=== PATIENT | female | born 1955 | race Caucasian/White ===

== ENCOUNTER 2017-01-07 01:27 | Emergency (ER) | payer MEDICARE ==
[~2017-01-07] VITALS: Ht 165.1 cm; Wt 85.0 kg
[~2017-01-07 01:27] MED LIST: AMLODIPINE10 MG PO; CYCLOBENZAPRINE10 MG PO; FENTANYL50 MCG/HR TD; GABAPENTIN600 MG PO; LEVOTHYROXINE150 MCG PO; LOSARTAN/HCT1 TA1; LOSARTAN/HCT1 TA1 PO; OXYCODONE10 M1 PO; PAROXETINE40 MG PO; SIMVASTATIN20 MG PO; TRAZODONE50 MG PO
[2017-01-07] MEDS ORDERED: CENTRUM PO (03:00)
[2017-01-07] MEDS ORDERED: OMEGA 31000 MG PO (03:01)
[2017-01-07] MEDS ORDERED: CO ENZYME Q PO (03:01)
[2017-01-07] MEDS ORDERED: LORAZEPAM0.5 MG PO (03:03)
[2017-01-07 05:37] LABS: HEMATOCRIT 44.7 % (37.0-47.0); HEMOGLOBIN 14.9 g/dl (12.0-16.0); IMMATURE GRANULOCYTES 0.3 % (0.0-1.0); MEAN CELL VOLUME 95.5 fL CALC (80.0-100.0); MEAN CORPUSCULAR HGB 31.8 pG CALC (26.0-32.0); MEAN CORPUSCULAR HGB CONC 33.3 g/L CALC (32.0-36.0); NEUT# 6.17 thou/uL (2.00-7.15); RED BLOOD COUNT 4.68 mill/uL (4.20-5.60)
[2017-01-07 06:45] VITALS: BP 148/84
== END 2017-01-07 06:45 | disposition home or self-care (01) ==
LOC: ED 01:27
PROVIDERS: Emergency Medicine
DX: R10.31 Right lower quadrant pain (principal); I10 Essential (primary) hypertension; B19.20 Unspecified viral hepatitis C without hepatic coma; E05.00 Thyrotoxicosis with diffuse goiter without thyrotoxic crisis or storm; M19.90 Unspecified osteoarthritis, unspecified site; F17.210 Nicotine dependence, cigarettes, uncomplicated

== ENCOUNTER 2018-04-17 17:40 | Emergency (ER) | payer MEDICARE, MEDICAID ==
[~2018-04-17] VITALS: Ht 165.1 cm; Wt 90.0 kg
[~2018-04-17 17:40] MED LIST changes: +CENTRUM PO; +CO ENZYME Q PO; +LORAZEPAM0.5 MG PO; +OMEGA 31000 MG PO
[2018-04-17 18:28] LABS: HEMATOCRIT 40.5 % (37.0-47.0); HEMOGLOBIN 13.6 g/dl (12.0-16.0); IMMATURE GRANULOCYTES 0.6 % (0.0-5.0); MEAN CELL VOLUME 95.1 fL CALC (80.0-100.0); MEAN CORPUSCULAR HGB 31.9 pG CALC (26.0-32.0); MEAN CORPUSCULAR HGB CONC 33.6 g/L CALC (32.0-36.0); NEUT# 8.48 thou/uL (2.00-7.15); RED BLOOD COUNT 4.26 mill/uL (4.20-5.60); RED CELL DISTRI WIDTH 13.5 % (11.5-15.5)
[2018-04-17 18:28] LABS: URINE BILIRUBIN - DIPSTICK NEGATIVE (NEGATIVE); URINE BLOOD DIPSTICK TRACE-INTACT (NEGATIVE); URINE COLOR YELLOW; URINE GLUCOSE - DIPSTICK NEGATIVE (NEGATIVE); URINE KETONE NEGATIVE (NEGATIVE); URINE LEUK ESTERASE TRACE (NEGATIVE); URINE NITRITE - DIPSTICK NEGATIVE (Negative); URINE PROTEIN - DIPSTICK NEGATIVE (NEG-TRACE); URINE SPECIFIC GRAVITY >=1.030; URINE UROBILINOGEN - DIPSTICK 0.2 E.U./dL (0.2)
[2018-04-17 18:29] LABS: URINE CLARITY CLEAR
[2018-04-17 18:43] LABS: ALBUMIN 3.8 g/dL (3.2-5.0); ALKALINE PHOSPHATASE 84 u/l (38-126); ANION GAP 14 (6-22 (CALC)); BILIRUBIN, TOTAL 0.7 mg/dL (0.0-1.4); BUN 6 mg/dL (7-17); BUN/CREATININE RATIO 9 (12-20 (CALC)); CARBON DIOXIDE 26 mmol/l (22-30); CHLORIDE 103 mmol/l (95-108); CREATININE 0.7 mg/dL (0.5-1.0); GFR > 60 ML/MIN (>=60 (CALC)); GFR FOR AFR.AMER. > 60 ML/MIN (>=60 (CALC)); POTASSIUM 3.9 mmol/l (3.5-5.1); SGOT/AST 33 u/l (14-36); SGPT/ALT 37 u/l (9-52); SODIUM 138 mmol/l (137-146); TOTAL PROTEIN 7.2 g/dL (6.3-8.2)
[2018-04-17] MEDS ORDERED: EFFEXOR37.5 MG PO (19:07)
[2018-04-17 20:25] VITALS: BP 137/65
== END 2018-04-17 20:28 | disposition home or self-care (01) ==
LOC: ED 17:40
DX: R10.31 Right lower quadrant pain (principal); R50.9 Fever, unspecified; R35.0 Frequency of micturition; F17.200 Nicotine dependence, unspecified, uncomplicated; M54.5 Low back pain

== ENCOUNTER 2019-06-15 14:21 | Inpatient (IN) | payer MEDICARE, MEDICAID ==
[~2019-06-15] VITALS: Ht 167.6 cm; Wt 78.9 kg
[~2019-06-15 14:21] MED LIST changes: +ATIVAN1 M1 PO; +EFFEXOR37.5 MG PO; -LORAZEPAM0.5 MG PO
[2019-06-15 15:15] LABS: HEMOGLOBIN 16.8 g/dl (12.0-16.0); IMMATURE GRANULOCYTES 0.4 % (0.0-5.0); MEAN CELL VOLUME 95.3 fL CALC (80.0-100.0); MEAN CORPUSCULAR HGB 31.4 pG CALC (26.0-32.0); MEAN CORPUSCULAR HGB CONC 32.9 g/L CALC (32.0-36.0); NEUT# 8.73 thou/uL (2.00-7.15); RED BLOOD COUNT 5.35 mill/uL (4.20-5.60); RED CELL DISTRI WIDTH 13.9 % (11.5-15.5)
[2019-06-15 15:28] LABS: ALBUMIN 4.7 g/dL (3.2-5.0); ALKALINE PHOSPHATASE 98 u/l (38-126); AMYLASE 45 u/l (30-110); ANION GAP 18 (6-22 (CALC)); BILIRUBIN, TOTAL 1.1 mg/dL (0.0-1.4); BUN 10 mg/dL (8-23); BUN/CREATININE RATIO 9 (12-20 (CALC)); CARBON DIOXIDE 28 mmol/l (22-30); CHLORIDE 101 mmol/l (95-108); CREATININE 1.1 mg/dL (0.5-1.0); GFR 50 ML/MIN (>=60 (CALC)); GFR FOR AFR.AMER. > 60 ML/MIN (>=60 (CALC)); LIPASE 21 u/l (23-300); POTASSIUM 4.2 mmol/l (3.5-5.1); SGOT/AST 21 u/l (9-36); SODIUM 143 mmol/l (137-146); TOTAL PROTEIN 8.4 g/dL (6.3-8.2)
[2019-06-15 17:35] VITALS: BP 156/92
[2019-06-15 19:23] VITALS: BP 168/86
[2019-06-15 21:30] VITALS: BP 141/77
[2019-06-15 23:23] LABS: URINE BILIRUBIN - DIPSTICK SMALL (NEGATIVE); URINE BLOOD DIPSTICK NEGATIVE (NEGATIVE); URINE COLOR YELLOW; URINE GLUCOSE - DIPSTICK NEGATIVE (NEGATIVE); URINE KETONE TRACE mg/dL (NEGATIVE); URINE LEUK ESTERASE TRACE (NEGATIVE); URINE NITRITE - DIPSTICK NEGATIVE (Negative); URINE PROTEIN - DIPSTICK NEGATIVE (NEG-TRACE); URINE SPECIFIC GRAVITY 1.025
[2019-06-16 00:01] VITALS: BP 117/77
[2019-06-16 03:42] VITALS: BP 114/56
[2019-06-16 07:50] VITALS: BP 126/77
[2019-06-16 13:37] VITALS: BP 133/80
[2019-06-16 16:31] VITALS: BP 130/72
[2019-06-16 20:01] VITALS: BP 149/74
[2019-06-17 04:28] VITALS: BP 144/77
[2019-06-17 05:07] LABS: IMMATURE GRANULOCYTES 0.5 % (0.0-5.0); MEAN CELL VOLUME 97.7 fL CALC (80.0-100.0); MEAN CORPUSCULAR HGB 31.7 pG CALC (26.0-32.0); MEAN CORPUSCULAR HGB CONC 32.4 g/L CALC (32.0-36.0); NEUT# 6.91 thou/uL (2.00-7.15); RED BLOOD COUNT 3.98 mill/uL (4.20-5.60); RED CELL DISTRI WIDTH 13.6 % (11.5-15.5)
[2019-06-17 05:54] LABS: HEMATOCRIT 38.9 % (37.0-47.0); HEMOGLOBIN 12.6 g/dl (12.0-16.0)
[2019-06-17 06:10] LABS: ALKALINE PHOSPHATASE 71 u/l (38-126); ANION GAP 14 (6-22 (CALC)); BILIRUBIN, TOTAL 1.1 mg/dL (0.0-1.4); BUN 13 mg/dL (8-23); BUN/CREATININE RATIO 16 (12-20 (CALC)); CARBON DIOXIDE 26 mmol/l (22-30); CHLORIDE 108 mmol/l (95-108); CREATININE 0.8 mg/dL (0.5-1.0); GFR > 60 ML/MIN (>=60 (CALC)); GFR FOR AFR.AMER. > 60 ML/MIN (>=60 (CALC)); POTASSIUM 3.8 mmol/l (3.5-5.1); SGOT/AST 21 u/l (9-36); SODIUM 143 mmol/l (137-146)
[2019-06-17 06:11] LABS: ALBUMIN 3.5 g/dL (3.2-5.0); TOTAL PROTEIN 6.4 g/dL (6.3-8.2)
[2019-06-17 07:36] VITALS: BP 142/72
[2019-06-17 15:27] VITALS: BP 142/83
[2019-06-17 19:30] VITALS: BP 148/83
[2019-06-18 04:00] VITALS: BP 138/71
[2019-06-18 05:16] LABS: HEMATOCRIT 36.9 % (37.0-47.0); HEMOGLOBIN 12.3 g/dl (12.0-16.0); MEAN CELL VOLUME 97.6 fL CALC (80.0-100.0); MEAN CORPUSCULAR HGB 32.5 pG CALC (26.0-32.0); MEAN CORPUSCULAR HGB CONC 33.3 g/L CALC (32.0-36.0); RED BLOOD COUNT 3.78 mill/uL (4.20-5.60); RED CELL DISTRI WIDTH 13.8 % (11.5-15.5)
[2019-06-18 05:35] LABS: ANION GAP 11 (6-22 (CALC)); BUN 12 mg/dL (8-23); BUN/CREATININE RATIO 16 (12-20 (CALC)); CARBON DIOXIDE 26 mmol/l (22-30); CHLORIDE 110 mmol/l (95-108); CREATININE 0.7 mg/dL (0.5-1.0); GFR > 60 ML/MIN (>=60 (CALC)); GFR FOR AFR.AMER. > 60 ML/MIN (>=60 (CALC)); POTASSIUM 3.5 mmol/l (3.5-5.1); SODIUM 145 mmol/l (137-146)
[2019-06-18 08:58] VITALS: BP 138/83
[2019-06-18 10:50] VITALS: BP 159/85
[2019-06-18 15:51] VITALS: BP 144/75
[2019-06-18 19:12] VITALS: BP 139/69
[2019-06-19 04:00] VITALS: BP 147/68
[2019-06-19 07:55] VITALS: BP 142/74
== END 2019-06-19 12:54 | disposition home or self-care (01) | DRG 390 ==
LOC: ED 14:21 → ED-I 15:40 → ED 16:30 → MS2 16:31
PROVIDERS: Nurse Practitioner Family; ADMIT Internal Medicine; ATTEND Internal Medicine
DX: K56.51 Intestinal adhesions [bands], with partial obstruction (principal); I10 Essential (primary) hypertension; E78.5 Hyperlipidemia, unspecified; K57.30 Diverticulosis of large intestine without perforation or abscess without bleeding; K21.9 Gastro-esophageal reflux disease without esophagitis; F41.9 Anxiety disorder, unspecified; F32.9 Major depressive disorder, single episode, unspecified; E89.0 Postprocedural hypothyroidism; B18.2 Chronic viral hepatitis C; M47.816 Spondylosis without myelopathy or radiculopathy, lumbar region; I45.10 Unspecified right bundle-branch block; Y84.2 Radiological procedure and radiotherapy as the cause of abnormal reaction of the patient, or of later complication, without mention of misadventure at the time of the procedure; Z87.891 Personal history of nicotine dependence; Z86.73 Personal history of transient ischemic attack (TIA), and cerebral infarction without residual deficits
CPT/HCPCS: G0378; J1650; Q9967

== ENCOUNTER 2019-06-24 22:28 | Observation (INO) | payer MEDICARE, MEDICAID ==
[~2019-06-24] VITALS: Ht 274.3 cm; Wt 78.0 kg
[2019-06-24 23:54] LABS: MEAN CORPUSCULAR HGB 31.3 pG CALC (26.0-32.0); MEAN CORPUSCULAR HGB CONC 32.6 g/L CALC (32.0-36.0); NEUT# 9.22 thou/uL (2.00-7.15); RED BLOOD COUNT 5.24 mill/uL (4.20-5.60); RED CELL DISTRI WIDTH 14.1 % (11.5-15.5)
[2019-06-24 23:57] LABS: HEMATOCRIT 50.3 % (37.0-47.0); HEMOGLOBIN 16.4 g/dl (12.0-16.0)
[2019-06-25] VITALS (9 sets, daily range): BP systolic 109–179; BP diastolic 61–87
[2019-06-25 00:19] LABS: ALKALINE PHOSPHATASE 89 u/l (38-126); AMYLASE 98 u/l (30-110); ANION GAP 15 (6-22 (CALC)); BUN 10 mg/dL (8-23); BUN/CREATININE RATIO 10 (12-20 (CALC)); CARBON DIOXIDE 26 mmol/l (22-30); CHLORIDE 103 mmol/l (95-108); CREATININE 0.9 mg/dL (0.5-1.0); GFR > 60 ML/MIN (>=60 (CALC)); GFR FOR AFR.AMER. > 60 ML/MIN (>=60 (CALC)); LIPASE 44 u/l (23-300); POTASSIUM 3.8 mmol/l (3.5-5.1); SGOT/AST 30 u/l (9-36); SODIUM 140 mmol/l (137-146)
[2019-06-25 00:28] LABS: ALBUMIN 4.4 g/dL (3.2-5.0); BILIRUBIN, TOTAL 0.6 mg/dL (0.0-1.4); TOTAL PROTEIN 8.1 g/dL (6.3-8.2)
[2019-06-25 04:09] LABS: URINE BILIRUBIN - DIPSTICK NEGATIVE (NEGATIVE); URINE COLOR YELLOW; URINE GLUCOSE - DIPSTICK NEGATIVE (NEGATIVE); URINE KETONE NEGATIVE (NEGATIVE); URINE LEUK ESTERASE TRACE (NEGATIVE); URINE NITRITE - DIPSTICK NEGATIVE (Negative); URINE PH 6.5 (4.5-8.0); URINE PROTEIN - DIPSTICK NEGATIVE (NEG-TRACE); URINE SPECIFIC GRAVITY 1.015; URINE UROBILINOGEN - DIPSTICK 0.2 E.U./dL (0.2)
[2019-06-25 04:17] LABS: URINE BLOOD DIPSTICK NEGATIVE (NEGATIVE)
[2019-06-25] MEDS ORDERED: TOPIRAMATE25 MG PO (13:54)
[2019-06-25] MEDS ORDERED: ALPRAZOLAM1 M1 PO (13:58)
[2019-06-25] MEDS ORDERED: LASIX 40 MG TAB40 MG PO (13:59)
[2019-06-25] MEDS ORDERED: KLOR-CON 1010 MEQ PO (13:59)
[2019-06-25] MEDS ORDERED: BYSTOLIC5 MG PO (14:00)
[2019-06-25] MEDS ORDERED: BUPROPION300 MG PO (14:02)
[2019-06-25] MEDS ORDERED: BUPROPION150 M3 PO (14:02)
[2019-06-25] MEDS ORDERED: MIRTAZAPINE15 MG PO (14:03)
[2019-06-26 02:53] LABS: MEAN CELL VOLUME 98.9 fL CALC (80.0-100.0); MEAN CORPUSCULAR HGB 31.7 pG CALC (26.0-32.0); RED BLOOD COUNT 4.36 mill/uL (4.20-5.60); RED CELL DISTRI WIDTH 14.2 % (11.5-15.5)
[2019-06-26 03:08] LABS: ANION GAP 11 (6-22 (CALC)); BUN 11 mg/dL (8-23); BUN/CREATININE RATIO 12 (12-20 (CALC)); CARBON DIOXIDE 26 mmol/l (22-30); CHLORIDE 108 mmol/l (95-108); CREATININE 0.9 mg/dL (0.5-1.0); GFR > 60 ML/MIN (>=60 (CALC)); GFR FOR AFR.AMER. > 60 ML/MIN (>=60 (CALC)); POTASSIUM 3.9 mmol/l (3.5-5.1); SODIUM 140 mmol/l (137-146)
[2019-06-26 03:16] LABS: HEMATOCRIT 43.1 % (37.0-47.0); HEMOGLOBIN 13.8 g/dl (12.0-16.0)
[2019-06-26 05:00] VITALS: BP 105/65
[2019-06-26 08:10] VITALS: BP 113/67
[2019-06-26] MEDS ORDERED: CIPROFLOXACN500 MG PO (12:14)
[2019-06-26] MEDS ORDERED: METRONIDAZOL500 MG PO (12:14)
== END 2019-06-26 14:58 | disposition home or self-care (01) ==
LOC: ED 22:28 → ED-I 06-25 00:44 → ED 06-25 01:05 → MS2 06-25 01:06
PROVIDERS: Emergency Medicine; Internal Medicine; ADMIT Internal Medicine; ATTEND Internal Medicine
PROC: 3E02340 Introduction of Influenza Vaccine into Muscle, Percutaneous Approach (ICD-10-PCS; principal; 2019-06-26)
PROC: 3E0234Z Introduction of Serum, Toxoid and Vaccine into Muscle, Percutaneous Approach (ICD-10-PCS; 2019-06-26)
DX: K56.50 Intestinal adhesions [bands], unspecified as to partial versus complete obstruction (principal); I10 Essential (primary) hypertension; E78.5 Hyperlipidemia, unspecified; K21.9 Gastro-esophageal reflux disease without esophagitis; F41.9 Anxiety disorder, unspecified; F32.9 Major depressive disorder, single episode, unspecified; E89.0 Postprocedural hypothyroidism; K57.30 Diverticulosis of large intestine without perforation or abscess without bleeding; B18.2 Chronic viral hepatitis C; M47.816 Spondylosis without myelopathy or radiculopathy, lumbar region; Y84.2 Radiological procedure and radiotherapy as the cause of abnormal reaction of the patient, or of later complication, without mention of misadventure at the time of the procedure; Z86.73 Personal history of transient ischemic attack (TIA), and cerebral infarction without residual deficits; Z87.891 Personal history of nicotine dependence; Z23 Encounter for immunization

== ENCOUNTER 2019-08-08 07:52 | Inpatient (IN) | payer MEDICARE, MEDICAID ==
[~2019-08-08] VITALS: Ht 165.1 cm; Wt 74.8 kg
[2019-08-08] VITALS (9 sets, daily range): BP systolic 125–167; BP diastolic 70–97
[~2019-08-08 07:52] MED LIST changes: +ALPRAZOLAM1 M1 PO; +BUPROPION150 M3 PO; +BUPROPION300 MG PO; +BYSTOLIC5 MG PO; +CIPROFLOXACN500 MG PO; +KLOR-CON 1010 MEQ PO; +LASIX 40 MG TAB40 MG PO; +METRONIDAZOL500 MG PO; +MIRTAZAPINE15 MG PO; +SG ASA LOW81 M1 PO; +TOPIRAMATE25 MG PO
[2019-08-09 03:30] VITALS: BP 140/68
[2019-08-09 05:38] LABS: HEMATOCRIT 39.6 % (37.0-47.0); HEMOGLOBIN 12.7 g/dl (12.0-16.0); IMMATURE GRANULOCYTES 0.6 % (0.0-5.0); MEAN CELL VOLUME 98.8 fL CALC (80.0-100.0); MEAN CORPUSCULAR HGB 31.7 pG CALC (26.0-32.0); MEAN CORPUSCULAR HGB CONC 32.1 g/L CALC (32.0-36.0); NEUT# 9.57 thou/uL (2.00-7.15); RED BLOOD COUNT 4.01 mill/uL (4.20-5.60); RED CELL DISTRI WIDTH 13.6 % (11.5-15.5)
[2019-08-09 12:01] VITALS: BP 131/84
[2019-08-09 15:00] VITALS: BP 116/69
[2019-08-09 19:00] VITALS: BP 127/74
[2019-08-10 04:00] VITALS: BP 143/78
[2019-08-10 10:59] VITALS: BP 133/85
[2019-08-10 12:34] LABS: HEMATOCRIT 41.2 % (37.0-47.0); HEMOGLOBIN 13.1 g/dl (12.0-16.0); MEAN CORPUSCULAR HGB 32.1 pG CALC (26.0-32.0); MEAN CORPUSCULAR HGB CONC 31.8 g/L CALC (32.0-36.0); RED BLOOD COUNT 4.08 mill/uL (4.20-5.60); RED CELL DISTRI WIDTH 13.6 % (11.5-15.5)
[2019-08-10 13:19] LABS: ALKALINE PHOSPHATASE 78 u/l (38-126); ANION GAP 14 (6-22 (CALC)); BUN 13 mg/dL (8-23); BUN/CREATININE RATIO 14 (12-20 (CALC)); CARBON DIOXIDE 30 mmol/l (22-30); CHLORIDE 99 mmol/l (95-108); CREATININE 0.9 mg/dL (0.5-1.0); GFR > 60 ML/MIN (>=60 (CALC)); GFR FOR AFR.AMER. > 60 ML/MIN (>=60 (CALC)); POTASSIUM 3.8 mmol/l (3.5-5.1); SGOT/AST 32 u/l (9-36); SODIUM 139 mmol/l (137-146); TOTAL PROTEIN 7.3 g/dL (6.3-8.2)
[2019-08-10 13:20] LABS: BILIRUBIN, TOTAL 1.5 mg/dL (0.0-1.4)
[2019-08-10 15:30] VITALS: BP 133/75
[2019-08-10 19:06] VITALS: BP 110/75
[2019-08-11 01:20] VITALS: BP 145/71
[2019-08-11 03:50] VITALS: BP 110/68
[2019-08-11 07:51] VITALS: BP 114/58
[2019-08-11 15:55] VITALS: BP 151/77
[2019-08-11 18:59] VITALS: BP 131/74
[2019-08-11 23:36] VITALS: BP 111/59
[2019-08-12 03:06] VITALS: BP 104/63
[2019-08-12 05:33] LABS: HEMATOCRIT 36.2 % (37.0-47.0); HEMOGLOBIN 11.8 g/dl (12.0-16.0); IMMATURE GRANULOCYTES 0.5 % (0.0-5.0); MEAN CELL VOLUME 98.4 fL CALC (80.0-100.0); MEAN CORPUSCULAR HGB 32.1 pG CALC (26.0-32.0); MEAN CORPUSCULAR HGB CONC 32.6 g/L CALC (32.0-36.0); NEUT# 9.53 thou/uL (2.00-7.15); RED BLOOD COUNT 3.68 mill/uL (4.20-5.60); RED CELL DISTRI WIDTH 13.2 % (11.5-15.5)
[2019-08-12 05:53] LABS: ALBUMIN 3.2 g/dL (3.2-5.0); ALKALINE PHOSPHATASE 98 u/l (38-126); ANION GAP 12 (6-22 (CALC)); BUN 13 mg/dL (8-23); BUN/CREATININE RATIO 13 (12-20 (CALC)); CARBON DIOXIDE 30 mmol/l (22-30); CHLORIDE 98 mmol/l (95-108); GFR 56 ML/MIN (>=60 (CALC)); GFR FOR AFR.AMER. > 60 ML/MIN (>=60 (CALC)); POTASSIUM 3.6 mmol/l (3.5-5.1); SGOT/AST 30 u/l (9-36); SODIUM 136 mmol/l (137-146); TOTAL PROTEIN 6.1 g/dL (6.3-8.2)
[2019-08-12 07:53] VITALS: BP 113/70
[2019-08-12 09:24] VITALS: BP 106/66
[2019-08-12 10:40] LABS: MAGNESIUM 1.8 mg/dL (1.6-2.3)
[2019-08-12 11:21] VITALS: BP 138/70
[2019-08-12 14:40] VITALS: BP 131/84
[2019-08-12 19:11] VITALS: BP 116/66
[2019-08-13 03:51] VITALS: BP 105/56
[2019-08-13 05:42] LABS: HEMATOCRIT 38.2 % (37.0-47.0); HEMOGLOBIN 12.3 g/dl (12.0-16.0); MEAN CELL VOLUME 99.2 fL CALC (80.0-100.0); MEAN CORPUSCULAR HGB 31.9 pG CALC (26.0-32.0); MEAN CORPUSCULAR HGB CONC 32.2 g/L CALC (32.0-36.0); NEUT# 7.23 thou/uL (2.00-7.15); RED BLOOD COUNT 3.85 mill/uL (4.20-5.60)
[2019-08-13 07:25] VITALS: BP 98/72
[2019-08-13 14:55] VITALS: BP 146/82
[2019-08-13 20:46] VITALS: BP 119/74
[2019-08-14 00:36] VITALS: BP 135/81
[2019-08-14 04:14] VITALS: BP 129/79
[2019-08-14 05:21] LABS: HEMATOCRIT 43.4 % (37.0-47.0); HEMOGLOBIN 14.2 g/dl (12.0-16.0); IMMATURE GRANULOCYTES 1.3 % (0.0-5.0); MEAN CELL VOLUME 97.1 fL CALC (80.0-100.0); MEAN CORPUSCULAR HGB 31.8 pG CALC (26.0-32.0); MEAN CORPUSCULAR HGB CONC 32.7 g/L CALC (32.0-36.0); NEUT# 7.9 thou/uL (2.00-7.15); RED BLOOD COUNT 4.47 mill/uL (4.20-5.60); RED CELL DISTRI WIDTH 12.6 % (11.5-15.5)
[2019-08-14 05:55] LABS: BUN 14 mg/dL (8-23); BUN/CREATININE RATIO 17 (12-20 (CALC)); CARBON DIOXIDE 26 mmol/l (22-30); CHLORIDE 98 mmol/l (95-108); CREATININE 0.8 mg/dL (0.5-1.0); GFR > 60 ML/MIN (>=60 (CALC)); GFR FOR AFR.AMER. > 60 ML/MIN (>=60 (CALC)); MAGNESIUM 2.1 mg/dL (1.6-2.3); SODIUM 138 mmol/l (137-146)
[2019-08-14 05:57] LABS: ANION GAP 19 (6-22 (CALC)); POTASSIUM 4.5 mmol/l (3.5-5.1)
[2019-08-14 08:40] VITALS: BP 119/61
[2019-08-14 09:43] VITALS: BP 119/61
[2019-08-14] MEDS ORDERED: KEFLEX500 M1 PO (14:14)
== END 2019-08-14 15:28 | disposition home or self-care (01) | DRG 330 ==
LOC: ORM 07:52 → MS2 12:11
PROVIDERS: Nurse Practitioner Family; ADMIT Surgery; ATTEND Surgery
PROC: 0DB80ZZ Excision of Small Intestine, Open Approach (ICD-10-PCS; principal; 2019-08-08)
PROC: 0DN84ZZ Release Small Intestine, Percutaneous Endoscopic Approach (ICD-10-PCS; 2019-08-08)
PROC: 0DNU4ZZ Release Omentum, Percutaneous Endoscopic Approach (ICD-10-PCS; 2019-08-08)
PROC: 0W9F3ZZ Drainage of Abdominal Wall, Percutaneous Approach (ICD-10-PCS; 2019-08-14)
DX: K56.51 Intestinal adhesions [bands], with partial obstruction (principal); J98.11 Atelectasis; T81.41XA Infection following a procedure, superficial incisional surgical site, initial encounter; I10 Essential (primary) hypertension; E78.5 Hyperlipidemia, unspecified; K21.9 Gastro-esophageal reflux disease without esophagitis; F41.1 Generalized anxiety disorder; F32.9 Major depressive disorder, single episode, unspecified; E89.0 Postprocedural hypothyroidism; I45.10 Unspecified right bundle-branch block; M47.816 Spondylosis without myelopathy or radiculopathy, lumbar region; F17.200 Nicotine dependence, unspecified, uncomplicated; B96.89 Other specified bacterial agents as the cause of diseases classified elsewhere; Y83.6 Removal of other organ (partial) (total) as the cause of abnormal reaction of the patient, or of later complication, without mention of misadventure at the time of the procedure; Y84.2 Radiological procedure and radiotherapy as the cause of abnormal reaction of the patient, or of later complication, without mention of misadventure at the time of the procedure; Z86.73 Personal history of transient ischemic attack (TIA), and cerebral infarction without residual deficits; Z91.041 Radiographic dye allergy status
CPT/HCPCS: J0131; J1100; J2710; Q9967

== ENCOUNTER 2020-02-16 20:35 | Emergency (ER) | payer MEDICARE, MEDICAID ==
[~2020-02-16 20:35] MED LIST changes: +KEFLEX500 M1 PO
[2020-02-16 21:32] LABS: HEMATOCRIT 45.6 % (37.0-47.0); HEMOGLOBIN 14.9 g/dl (12.0-16.0); IMMATURE GRANULOCYTES 0.3 % (0.0-5.0); MEAN CELL VOLUME 97.2 fL CALC (80.0-100.0); MEAN CORPUSCULAR HGB 31.8 pG CALC (26.0-32.0); MEAN CORPUSCULAR HGB CONC 32.7 g/dL CAL (32.0-36.0); NEUT# 4.42 thou/uL (2.00-7.15); RED BLOOD COUNT 4.69 mill/uL (4.20-5.60); RED CELL DISTRI WIDTH 13.6 % (11.5-15.5)
[2020-02-16 22:08] LABS: ALBUMIN 4.4 g/dL (3.2-5.0); BILIRUBIN, TOTAL 0.5 mg/dL (0.0-1.4); CREATININE 1.2 mg/dL (0.5-1.0); POTASSIUM 3.7 mmol/l (3.5-5.1); TOTAL PROTEIN 7.7 g/dL (6.3-8.2)
[2020-02-16 22:23] LABS: URINE BILIRUBIN - DIPSTICK NEGATIVE (NEGATIVE); URINE BLOOD DIPSTICK NEGATIVE (NEGATIVE); URINE COLOR YELLOW; URINE GLUCOSE - DIPSTICK NEGATIVE (NEGATIVE); URINE KETONE NEGATIVE (NEGATIVE); URINE NITRITE - DIPSTICK NEGATIVE (Negative); URINE PROTEIN - DIPSTICK NEGATIVE (NEG-TRACE); URINE SPECIFIC GRAVITY >=1.030; URINE UROBILINOGEN - DIPSTICK 0.2 E.U./dL (0.2)
[2020-02-16 22:24] LABS: URINE LEUK ESTERASE SMALL (NEGATIVE)
[2020-02-16 22:32] LABS: URINE BACTERIA RARE hpf; URINE SQUAMOUS EPITHELIAL CELL FEW EPI/hpf (0-FEW)
[2020-02-16] MEDS ORDERED: BACTRIM DS1 TAB PO (23:59)
[2020-02-17 00:36] VITALS: BP 166/70
[2020-02-20] MEDS ORDERED: MELOXICAM7.5 MG PO (11:04)
[2020-02-20] MEDS ORDERED: BIOTIN1000 MCG PO (11:05)
[2020-02-20] MEDS ORDERED: CYANOCOBAL1000 MCG/M IM (11:05)
[2020-02-20] MEDS ORDERED: VITAMIN D3400 UNI2 PO (11:06)
[2020-02-20] MEDS ORDERED: NICODERM C14 MG/241 TD (11:07)
== END 2020-02-17 00:36 | disposition home or self-care (01) ==
LOC: ED 20:35
DX: K43.2 Incisional hernia without obstruction or gangrene (principal); N39.0 Urinary tract infection, site not specified; I10 Essential (primary) hypertension; M50.90 Cervical disc disorder, unspecified, unspecified cervical region; Z90.49 Acquired absence of other specified parts of digestive tract; Z86.73 Personal history of transient ischemic attack (TIA), and cerebral infarction without residual deficits
CPT/HCPCS: Q9967

== ENCOUNTER 2020-02-27 06:48 | Day surgery (SDC) | payer MEDICARE, MEDICAID ==
[2020-02-27] VITALS (8 sets, daily range): BP systolic 105–124; BP diastolic 43–89
[~2020-02-27 06:48] MED LIST changes: +BACTRIM DS1 TAB PO; +BIOTIN1000 MCG PO; +CYANOCOBAL1000 MCG/M IM; +MELOXICAM7.5 MG PO; +NICODERM C14 MG/241 TD; +VITAMIN D3400 UNI2 PO
[2020-02-27] MEDS ORDERED: PERCOCET 5/325M1 TAB PO (10:07)
--- NOTE | 2020-02-27 11:55 | NUR ---
PT ARRIVED TO UNIT VIA STRETCHER; DROWSY AND ORIENTED X 3. ASSISTED SELF FROM BED TO STRETCHER; PAIN WITH MOVEMENT. BEDSIDE REPORT RECEIVED FROM OR NURSE. PT HAVING ABDOMINAL PAIN WITH LAP SITES CLOSED WITH DERMABOND; WELL APPROXIMATED. RESPIRATIONS EVEN AND UNLABORED ON OXYGEN 2L VIA NC; SPO2 88% ON ARRIVAL; BREATHING TECHNIUQES ENCOURAGED. LR INFUSING WITHOUT DIFFICULTY INTO IV SITE TO LFA; SITE APPEARS HEALTHY. SCD'S APPLIED TO BLE. IS AT BEDSIDE. PT DROWSY AND FALLLING ASLEEP DURING ADMISSION QUESTIONS, BUT PT IS COOPERATIVE. ORIENTED TO ROOM AND CALL LIGHT SYSTEM. PLAN OF CARE DISCUSSED. PT ENCOURAGED TO VERBALIZE CONCERNS. STATES UNDERSTANDING. SAFETY MEASURES IN PLACE. CALL LIGHT WITHIN REACH.
--- NOTE | 2020-02-27 13:51 | NUR ---
SPO2 UP TO 94% ON 2L NC. PT REQUESTING PAIN MEDICATION. SITTING UP IN BED SPLINTING ABDOMEN WITH PILLOW.
--- NOTE | 2020-02-27 14:34 | NUR ---
DILAUDID GIVEN ALONG WITH XANAX AND OTHER SCHEDULED MEDS. PT UP TO BSC TO VOID. ALL POST OP VS WNL; AFEBRILE.
--- NOTE | 2020-02-27 18:06 | NUR ---
PT UP TO BSC X 2 FOR ATTEMPTED VOID WITH NO SUCCESS. BLADDER SCAN RESULTS 594ML. PT AGAIN ASSISTED TO BSC FOR ATTEMPT TO VOID; 50 ML OUTPUT. PVR OF 450 ML. 16F LUO PLACED WITH IMMEDIATE RETURN OF 600 ML CLEAR YELLOW URINE. PT TOLERATED WELL.
--- NOTE | 2020-02-28 18:48 | NUR ---
Late entry for 02/28/20 0003 Awake alert ,oriented, talkative, states had been up and walked awound room and felt a little better but wanted a percocet, garcia bag emptied and pillows repositioned by DREDGE PIPEMAN while I went to get pain meds, resp unlabored, lungs clear but coarse and diminished in bases, remains talkative but having more pain, told her I would be back at about 1215 to give percocet and scheduled toradol but preferred her to have 30 min time frame between 1mg dilaudid IV given at 2348 and more narcotics, stated that's fine, denied any further needs or requests at this time. 0006 returned to room c/o severe abd pain and being cold, told her I would get her a blanket, bracelet scanned and meds scanned. At 0010 left room to get blanket, resp unlabored, color WNL, meds left on cart, as soon as I walked out of room I turned around to remove pain meds from top of cart since open and scanned, upon return to room, pt was blue and unresponsive, resp shallow, O2 increased and HOB up as high as it goes, stimulation given by shaking shoulders, called for help. SPENCER Georges responded immediately to help call, and called a rapid response at 0014, not breathing, unresponsive, VS machine retreived, HOB flat, back board under pts back, code cart retreived, pads applied to chest and back. 0017 rapid response arrived and yanet fernandes called, CPR had been started by this time by staff members, please see code blue sheet for more details of following events.
--- NOTE | 2020-02-28 19:37 | NUR ---
Late note for 02/27/20 at 2150 Awake, alert, oriented, pleasent, c/o abd pain and medicated with dilaudid 1mg, told that she needs to walk a bit around room to help move air and bowels after surgery, garica intact draining well for clear yellow urine. resp unlabored, using O2 at 2L nasal canula, skin WNL, 4 smaill laproscopic abd incisions well approximated and dry, dermabond holding well, abd round, soft, tender, positive bowel sounds in all quads, taling sips of water and eating jello.
== END 2020-02-28 01:04 | disposition expired ==
LOC: ORM 06:48 → MS2 06:48 → ORM 07:30 → MS2 12:05 → ORM 02-28 01:04
PROVIDERS: ATTEND Surgery
PROC: 0WUF4JZ Supplement Abdominal Wall with Synthetic Substitute, Percutaneous Endoscopic Approach (ICD-10-PCS; principal; 2020-02-27)
PROC: 5A12012 Performance of Cardiac Output, Single, Manual (ICD-10-PCS; 2020-02-28)
PROC: 0BH17EZ Insertion of Endotracheal Airway into Trachea, Via Natural or Artificial Opening (ICD-10-PCS; 2020-02-28)
PROC: 5A2204Z Restoration of Cardiac Rhythm, Single (ICD-10-PCS; 2020-02-28)
DX: K43.0 Incisional hernia with obstruction, without gangrene (principal); I97.121 Postprocedural cardiac arrest following other surgery; I47.2 Ventricular tachycardia; I10 Essential (primary) hypertension; E89.0 Postprocedural hypothyroidism; E78.5 Hyperlipidemia, unspecified; F32.9 Major depressive disorder, single episode, unspecified; M47.817 Spondylosis without myelopathy or radiculopathy, lumbosacral region; F41.9 Anxiety disorder, unspecified; Y83.8 Other surgical procedures as the cause of abnormal reaction of the patient, or of later complication, without mention of misadventure at the time of the procedure; Y92.230 Patient room in hospital as the place of occurrence of the external cause; Z86.73 Personal history of transient ischemic attack (TIA), and cerebral infarction without residual deficits; Z87.891 Personal history of nicotine dependence; Z11.59 Encounter for screening for other viral diseases
CPT/HCPCS: C1781; J0131; J0282; J2710